=== PATIENT | male | born 1975 | race Caucasian/White ===

== ENCOUNTER 2022-10-30 10:30 | Outpatient (CLI) | payer OTHER ==
[2022-10-30] MEDS ORDERED: Iopamidol 300 61% 100 ML VIAL FS ONE (10:48)
== END 2022-10-30 10:31 | disposition home or self-care (01) ==
LOC: CSHCT 10:30
PROVIDERS: ATTEND Internal Medicine Hematology & Oncology
DX: C62.90 Malignant neoplasm of unspecified testis, unspecified whether descended or undescended (principal)
CPT/HCPCS: 71260; 74177